=== PATIENT | male | born 1955 | race Two or more races ===

== ENCOUNTER 2021-04-14 15:03 | Emergency (ER) | payer MEDICAID ==
[~2021-04-14] VITALS: Ht 177.8 cm; Wt 92.5 kg
[2021-04-14 16:48] LABS: ALANINE AMINOTRANSFERASE 49 U/L (12-78); ALBUMIN 3.4 g/dL (3.4-5.0); ANION GAP 9 mmol/L (5-15); BASOPHILS % (AUTO) 1 % (0-1); CALCIUM 9.3 mg/dL (8.5-10.1); CHLORIDE 109 mmol/L (98-107); CREATININE 1.51 mg/dL (0.7-1.3); EOSINOPHILS % (AUTO) 7 % (1-7); LYMPHOCYTES % (AUTO) 25 % (22-44); MEAN CORPUSCULAR HEMOGLOBIN 29.6 pg (27.5-34.5); MEAN CORPUSCULAR HGB CONC 33.3 g/dL (33.2-36.2); MEAN PLATELET VOLUME 8.6 fL (7.4-10.4); MONOCYTES % (AUTO) 12 % (2-9); NEUTROPHILS % (AUTO) 55 % (42-75); PLATELET COUNT 309 x10^3/uL (130-400); RED CELL DISTRIBUTION WIDTH 14.5 % (9.4-14.8)
[2021-04-14 16:54] LABS: ALKALINE PHOSPHATASE 54 U/L (45-117); BILIRUBIN,TOTAL 0.2 mg/dL (0.2-1.0); TOTAL PROTEIN 7.6 g/dL (6.4-8.2)
--- NOTE | 2021-04-14 19:54 | NUR ---
AMBULATORY TO ROOM FROM LOBBY. PT DECLINED WHEELCHAIR. NAD.
--- NOTE | 2021-04-14 20:11 | NUR ---
DR. LANE IN TO EVAL PT. AND DISCUSS POC.
[2021-04-14 20:52] VITALS: BP 134/77
== END 2021-04-14 20:53 | disposition home or self-care (01) ==
LOC: ED 20:30
DX: E11.621 Type 2 diabetes mellitus with foot ulcer (principal); L97.519 Non-pressure chronic ulcer of other part of right foot with unspecified severity
CPT/HCPCS: 36415; 80053; 82962; 83605; 85025; 85651; 86140; 87040; 99284